=== PATIENT | male | born 1985 | race Caucasian/White ===

== ENCOUNTER 2019-10-31 07:50 | Emergency (ER) | payer SELFPAY ==
--- NOTE | 2019-10-31 07:55 | ED Physician Documentation ---
PD HPI ABD PAIN - Stated complaint Stated Complaint: ABD PX - History obtained from History obtained from: Patient - History of Present Illness Timing - onset: Last night, How many weeks ago (he had had some pain right flank to right abd about a week ago for couple days, not too bad and then improved. Then onset of pain last night moderately for couple of hours, then onset today couple hours ago severely, without improvement.) Timing - details: Abrupt onset, Still present Quality: Aching, Sharp, Pain Location: RLQ Radiation: Right flank. No: Chest Improved by: No: Eating, Laying still Worsened by: No: Eating, Moving, Breathing, Palpation Associated symptoms: Nausea. No: Fever, Vomiting, Chest pain, Loss of appetite Similar symptoms before: Has not had sx before Recently seen: Not recently seen Review of Systems Constitutional: denies: Fever, Chills Nose: denies: Rhinorrhea / runny nose, Congestion Throat: denies: Sore throat Respiratory: denies: Cough GI: reports: Abdominal Pain, Nausea. denies: Abdominal Swelling, Vomiting, Constipation : reports: Frequency (feeling of urgency for urination without much produced.). denies: Dysuria Skin: denies: Rash, Lesions Neurologic: denies: Generalized weakness, Near syncope, Altered mental status PD PAST MEDICAL HISTORY - Past Medical History Past Medical History: No Cardiovascular: None Neuro: None Endocrine/Autoimmune: None : None - Present Medications Home Medications: Ambulatory Orders Medication Instructions Recorded Confirmed Ondansetron Odt [Zofran] 4 mg TL Q6H PRN #10 tablet 10/31/19 Oxycodone HCl/Acetaminophen 1 each PO Q6H PRN #15 tablet 10/31/19 [Percocet 5-325 mg Tablet] Tamsulosin [Flomax] 0.4 mg PO DAILY #5 capsule 10/31/19 - Allergies Allergies/Adverse Reactions: Allergies Allergy/AdvReac Type Severity Reaction Status Date / Time No Known Drug Allergies Allergy Verified 10/31/19 08:03 PD ED PE NORMAL - Vitals Vital signs reviewed: Yes - General General: Alert and oriented X 3, Well developed/nourished, Other (appears in considerable pain right abd. ) - Neck Neck: Supple, no meningeal sign, No adenopathy - Cardiac Cardiac: RRR, No murmur - Respiratory Respiratory: Clear bilaterally - Abdomen Abdomen: Normal bowel sounds, Soft, Non distended, No organomegaly, Other (tender mild without guarding RLQ and some right CVA tender. ) - Male Male : Deferred - Rectal Rectal: Deferred - Derm Derm: Normal color - Extremities Extremities: No tenderness to palpate, Normal ROM s pain - Neuro Neuro: Alert and oriented X 3, No motor deficit, Normal speech Eye Opening: Spontaneous Motor: Obeys Commands Verbal: Oriented GCS Score: 15 Results - Vitals Vitals: Vital Signs - 24 hr 10/31/19 10/31/19 07:54 10:01 Heart Rate 88 77 Respiratory 16 18 Rate Blood Pressure 142/86 H 135/89 H O2 Saturation 99 95 Oxygen O2 Source Room air - Labs Labs: Laboratory Tests 10/31/19 10/31/19 10/31/19 08:15 08:15 09:22 WBC 6.8 RBC 4.76 Hgb 14.9 Hct 44.6 MCV 93.7 MCH 31.3 H MCHC 33.4 RDW 12.0 Plt Count 208 MPV 10.7 Neut # (Auto) 3.4 Lymph # (Auto) 2.5 [place] # (Auto) 0.6 Eos # (Auto) 0.2 Baso # (Auto) 0.1 Absolute Nucleated RBC 0.00 Nucleated RBC % 0.0 Sodium 140 Potassium 3.9 Chloride 103 Carbon Dioxide 23 Anion Gap 14.0 H BUN 23 H Creatinine 1.2 Estimated GFR (MDRD) 70 L Glucose 104 H Calcium 9.0 Total Bilirubin 0.5 AST 24 ALT 24 Alkaline Phosphatase 71 Total Protein 7.8 Albumin 4.2 Globulin 3.6 Albumin/Globulin Ratio 1.2 Lipase 31 Urine Color YELLOW Urine Clarity CLEAR Urine pH 5.5 Ur Specific [place] >=1.030 H Urine Protein NEGATIVE Urine Glucose (UA) NEGATIVE Urine Ketones NEGATIVE Urine Occult Blood SMALL H Urine Nitrite NEGATIVE Urine Bilirubin NEGATIVE Urine Urobilinogen 0.2 (NORMAL) Ur Leukocyte Esterase NEGATIVE Urine RBC 0-5 Urine WBC 0-3 Ur Squamous Epith Cells NONE SEEN Urine Bacteria Rare Ur Microscopic Review INDICATED Urine Culture Comments NOT INDICATED - Rads (name of study) KUB CT Radiology: Prelim report reviewed (4 mm stone at distal ureter with mild hydronephrosis. ), See rad report PD MEDICAL DECISION MAKING - ED course Complexity details: reviewed results (4 mm stone at distal ureter with mild hydroneprosis. ), re-evaluated patient (much improved with meds. ), considered differential (consistent with renal stone, appendix, UTI, diverticulitis, or other process. ), d/w patient Departure - Departure Disposition: 01 Home, Self Care Clinical Impression: Right sided abdominal pain, Ureterolithiasis Condition: Stable Record reviewed to determine appropriate education?: Yes Instructions: ED Stone Renal W Colic Follow-Up: Carlos Quintero MD [Provider Admit Priv/Credential] - Prescriptions: Tamsulosin [Flomax] 0.4 mg PO DAILY #5 capsule Oxycodone HCl/Acetaminophen [Percocet 5-325 mg Tablet] 1 each PO Q6H PRN #15 tablet PRN Reason: pain Ondansetron Odt [Zofran] 4 mg TL Q6H PRN #10 tablet PRN Reason: Nausea / Vomiting Comments: You do have a stone at the distal ureter almost to the bladder. I would anticipate passage of that in the next 2-3 days. Hopefully sooner. Stay well- hydrated. Use anti-inflammatory such as naproxen or ibuprofen 2-3 times a day. To that add Tylenol or oxycodone as needed for pain. Add tamsulosin daily for the next several days to help promote stone passage by decreasing spasm of the ureter. Recheck if not improved well over the next several days. Follow-up with urology if still persisting. Return to the ER if worsening symptoms despite medicine. Discharge Date/Time: 10/31/19 10:38
[2019-10-31] MEDS ORDERED: SODIUM CHLORIDE 0.9% 1,000 ML IV STA (08:06)
[2019-10-31] MEDS ORDERED: KETOROLAC 30 MG/ML VIAL IVP STA (08:06)
[2019-10-31] MEDS ORDERED: HYDROmorphone 1 MG/ML CARPUJECT IVP STA (08:06)
[2019-10-31] MEDS ORDERED: ONDANSETRON 4 MG/2 ML VIAL IVP STA (08:06)
[2019-10-31 08:21] LABS: BASOPHILS # (AUTO) 0.1 10^3/uL (0.0-0.1); BASOPHILS % (AUTO) 0.9 %; EOSINOPHILS # (AUTO) 0.2 10^3/uL (0.0-0.7); EOSINOPHILS % (AUTO) 2.8 %; HGB - HEMOGLOBIN 14.9 g/dL (14.0-18.0); LYMPHOCYTES # (AUTO) 2.5 10^3/uL (1.5-3.5); LYMPHOCYTES % (AUTO) 37.1 %; MEAN CORPUSCULAR HEMOGLOBIN 31.3 pg (27.0-31.0); MEAN CORPUSCULAR HGB CONC 33.4 g/dL (32.0-36.0); MEAN CORPUSCULAR VOLUME 93.7 fL (80.0-94.0); MEAN PLATELET VOLUME 10.7 fL (7.4-11.4); MONOCYTES # (AUTO) 0.6 10^3/uL (0.0-1.0); MONOCYTES % (AUTO) 8.2 %; NEUTROPHILS # (AUTO) 3.4 10^3/uL (1.5-6.6); NEUTROPHILS % (AUTO) 50.1 %; PLT - PLATELET COUNT 208 10^3/uL (130-450); RED BLOOD COUNT 4.76 10^6/uL (4.70-6.10); WHITE BLOOD COUNT 6.8 x10^3/uL (4.8-10.8)
[2019-10-31 08:35] LABS: ALBUMIN 4.2 g/dL (3.2-5.5); ALBUMIN/GLOBULIN RATIO 1.2 (1.0-2.2); BILIRUBIN,TOTAL 0.5 mg/dL (0.2-1.0); CREATININE 1.2 mg/dL (0.6-1.2); TOTAL PROTEIN 7.8 g/dL (6.7-8.2)
--- NOTE | 2019-10-31 09:16 | CT Report ---
PROCEDURE: Abdomen/Pelvis WO INDICATIONS: RLQ to flank pain TECHNIQUE: Noncontrast 5 mm thick sections acquired from the diaphragms to the symphysis. 5 mm coronal and sagi ttal reformats were then performed. For radiation dose reduction, the following was used: automated exposure control, adjustment of mA and/or kV according to patient size. COMPARISON: None. FINDINGS: Image quality: Excellent. ABDOMEN: Lung bases: Lung bases are clear. Heart size is normal. Solid organs: Liver and spleen are normal in size. Gallbladder wall does not appear thickened. P ancreas is normal in contours. No adrenal nodules. There is a 4 mm obstructing stone seen at the right ureterovesicular junction. There is associated mo derate right-sided hydroureter and hydronephrosis. Mild right-sided perinephric fat stranding can be seen. The kidneys demonstrate normal size. No nonobstructing stones are seen. There is no left-sided hydronephrosis. Peritoneum and bowel: Unenhanced bowel loops demonstrate normal wall thickness and caliber. No free fluid or air. A normal appendix is incidentally noted. Nodes and vessels: No retroperitoneal or mesenteric adenopathy by size criteria. Aorta and inferior vena cava are normal in caliber. Miscellaneous: No ventral hernias. PELVIS: Genitourinary: Bladder wall thickness is normal. Miscellaneous: No inguinal hernias or adenopathy. Bones: No suspicious bony lesions. No vertebral body compression fractures. IMPRESSION: 4 mm obstructing stone seen at the right ureterovesicular junction, with associated right-sided hydro ureter and hydronephrosis, with right-sided perinephric fat stranding. No nonobstructing kidney stones are seen. Normal appendix. Reviewed by: Jamin Tinoco MD on 10/31/2019 8:14 AM MAURICE Approved by: Jamin Tinoco MD on 10/31/2019 8:14 AM AKDT Station ID: [id number]
[2019-10-31] MEDS ORDERED: LIDOCAINE-MPF 2% 7 ML in SODIUM CHLORIDE 0.9% 50 ML IV STA (09:35)
[2019-10-31] MEDS ORDERED: DEXAMETHASONE 10 MG/ML VIAL IVP STA (09:35)
[2019-10-31] MEDS ORDERED: TAMSULOSIN 0.4 MG CAPSULE PO STA (09:35)
[2019-10-31 09:44] LABS: BILIRUBIN,URINE NEGATIVE (NEGATIVE); GLUCOSE, URINE (UA) NEGATIVE (NEGATIVE); KETONES,URINE (UA) NEGATIVE (NEGATIVE); LEUKOCYTE ESTERASE, URINE NEGATIVE (NEGATIVE); NITRITE,URINE NEGATIVE (NEGATIVE); OCCULT BLOOD,URINE SMALL (NEGATIVE); PH,URINE 5.5 PH (5.0-7.5); PROTEIN,URINE NEGATIVE (NEGATIVE); UROBILINOGEN,URINE 0.2 (NORMAL) E.U./dL (NORMAL)
[2019-10-31 09:46] LABS: CLARITY,URINE CLEAR (CLEAR)
[2019-10-31] MEDS ORDERED: LIDOCAINE-MPF 2% 5 ML VIAL ONE (09:48)
[2019-10-31 09:54] LABS: RBC,URINE 0-5 /HPF (0-5); SQUAMOUS EPITHELIAL CELL,UR NONE SEEN (<= Few)
[2019-10-31 09:55] LABS: BACTERIA,URINE Rare /HPF (None Seen)
[2019-10-31 10:19] VITALS: BP 135/89
== END 2019-10-31 10:38 | disposition home or self-care (01) ==
LOC: ED 07:50
DX: N13.2 Hydronephrosis with renal and ureteral calculous obstruction (principal)
CPT/HCPCS: 36415; 74176; 80053; 81001; 83690; 85025; 96361; 96365; 96375; 99284; A9270; J1170; J7040; 81003; 87086